=== PATIENT | female | born 1940 | race Caucasian/White ===

== ENCOUNTER → 2019-06-15 | Day surgery (SDC) | payer MEDICARE ==
--- NOTE | 2019-06-05 16:23 | HP ---
CC: Dr. Neves * PREOPERATIVE HISTORY AND PHYSICAL: DATE OF ADMISSION/SURGERY: 06/15/19 This patient is scheduled for same-day surgery by Dr. Romero on 06/15/19. DATE OF PREOPERATIVE HISTORY AND PHYSICAL EXAMINATION: 06/05/19. ATTENDING SURGEON: Dr. Yanna Romero * (dictated by Zulay Capone NP). CHIEF COMPLAINT: Right breast cancer. HISTORY OF PRESENT ILLNESS: The patient is an 79-year-old female who felt something different in her right breast and sought medical attention. She was sent for mammography, which identified an abnormality in the right breast which was biopsied and proved positive for invasive ductal carcinoma. She denied any nipple discharge or breast pain; she has never had radiation to the chest or a previous breast biopsy; there is no known family history of breast or ovarian cancer. She was briefly on control pills over 30 years ago; she was age 10 with her first menstrual period and 21 with the of her first child and she did breastfeed. She has been postmenopausal since [address]. Dr[address] Romero reviewed the above findings with the patient and discussed the various treatment options and the patient has opted for needle localized excision of the right breast cancer and sentinel lymph node biopsy as a same-day surgery procedure with intravenous sedation and local anesthesia. Dr. Romero described the nature of the surgical procedure, the relevant risks, benefits, and alternatives and today, I reviewed the expected postoperative care and recovery. The patient has had a chance to ask questions and stated that she understands the information and is satisfied with the answers given to her questions. She will sign surgical consent on the day of surgery. PAST MEDICAL HISTORY: Prediabetes; allergies and mild asthma and recurrent sinus infections. PAST SURGICAL HISTORY: Right hip replacement over 10 years ago. MEDICATIONS: 1. Advair 1 puff b.i.d. p.r.n. 2. Calcium and vitamin D supplement daily. 3. Vitamin B12 25 mg one-half tablet daily. 4. Flaxseed oil 1000 mg 1 capsule daily. 5. Metformin 500 mg p.o. daily, which she will hold on the day before surgery. 6. Glucosamine/chondroitin complex 1 tablet daily. 7. Estradiol vaginal insertion at bedtime p.r.n. ALLERGIES: LEVOFLOXACIN caused some type of unspecified reaction. FAMILY HISTORY: No known breast or ovarian cancer. No known anesthesia complications, bleeding tendencies, or clotting disorders. SOCIAL HISTORY: She is and her accompanied her to the visit today. She is a nonsmoker. She drinks 1 glass of wine daily and denies the use of other substances. REVIEW OF SYSTEMS: Constitutional: No fevers, chills, excessive fatigue, or weight loss. General: No previous anesthesia complications, bleeding tendencies, or clotting disorders. No history of blood transfusions. Endocrine : She was diagnosed with prediabetes, but currently her hemoglobin A1c has normalized to 6.3; she does not check fingersticks at home; no known thyroid disease. Breasts: As described in history of present illness. Respiratory: No current dyspnea on exertion. Occasional mild wheezing, occasional cough. Cardiovascular: No anginal chest pain or palpitations. Gastrointestinal: No nausea, vomiting, diarrhea, GI bleeding, or constipation. No change in bowel habits. Genitourinary: No dysuria. Musculoskeletal: Normal strength and tone. Integumentary: No chronic rashes or skin changes. Neurologic: No headache or blurred vision. No areas of focal weakness or numbness. Psychiatric: No reported anxiety, depression, or insomnia. PHYSICAL EXAMINATION GENERAL SURVEY: The patient is an 79-year-old female, well developed, well nourished, in no acute distress. VITAL SIGNS: Height 65.5 inches, weight 163 pounds, body mass index 26.7. Blood pressure 138/78, pulse 72 and regular, respiratory rate 16, temperature 97.3 tympanic. HEENT: Benign. NECK: Supple. No cervical lymphadenopathy. No supraclavicular lymphadenopathy. LUNGS: Breath sounds bilaterally clear and equal. HEART: Regular rate and rhythm. No murmurs or rubs appreciated. BREASTS: Symmetric. No skin dimpling or nipple discharge or nipple retraction. No axillary adenopathy. Palpation of the right breast reveals knobbiness in the area of the biopsy. No palpable masses in the left breast. ABDOMEN: Active bowel sounds. Soft, nontender, nondistended. No obvious masses or organomegaly. PELVIC: Exam deferred. RECTAL: Exam deferred. EXTREMITIES: Warm without edema or skin ulceration. NEUROLOGIC: Alert and oriented x3. Steady gait. SKIN: Warm, dry, intact. IMPRESSION: Right breast cancer. PLAN: Same-day surgery admission to Dr. Romero's service on 06/15/19 for needle localization excision of right breast cancer and sentinel lymph node biopsy. FEI CAPONE, MCKENNA [id number]/[facility] #: [id number] [facility]ENTERAbad
[~2019-06-15] MED LIST: Acetaminophen TAB* 325 MG ONE; Acetaminophen TAB* 325 MG PO ONE; Acetaminophen TAB* 325 MG PO PRN; Buffered Lidocaine 1% SYRIN* 1 ML/SYRINGE INTRADERM ONE; Bupivacaine 0.5% W/EPI SDV* 30 ML VIAL ONE; Bupivacaine 0.5%* 50 ML MDV VIAL ONE; DiMENhydriNATE IV* 50 MG/ML VIAL IV PUSH PRN; Famotidine IV* 10 MG/ML 2 ML (20 mg) ONE; HYDROcodone/ACETAMIN 5-325 MG* 1 TAB ONE; HYDROcodone/ACETAMIN 5-325 MG* 1 TAB PO PRN; Heparin VIAL(*) 5000 UNITS/ML VIAL (FIVE THOUSAND) ONE; KETAMINE HCL* 50 MG/ML 10 ML VIAL ONE; Lactated Ringers 1000 ML Bag* 1,000 ML IV SCH; Levalbuterol 0.63MG/3ML NEB* UNIT OF USE INH PRN; Lidocaine 1% INJ* 10 MG/ML 30 ML SDV ONE; Lidocaine 2% PF * 5 ML VIAL ONE; Lidocaine 2.5%/Prilocain 2.5%* 5 GM TUBE ONE; Midazolam* 1 MG/ML 5 ML VIAL (5 MG) ONE; Naloxone* 0.4 MG/ML 1 ML VIAL IV PRN; Ondansetron INJ* 2 MG/ML VIAL IV PRN; Propofol* 10 MG/ML 20 ML BTL ONE; ceFAZolin 2 GM PREMIX in ORs 2 GM/50 ML BAG ONE; celeCOXIB CAP* 200 MG ONE; celeCOXIB CAP* 200 MG PO ONE; diPHENhydraMINE IV* 50 MG/ML 1 ml VIAL (BENADRYL) IV PRN; fentaNYL* 50 MCG/ML 2 ML VIAL (100 MCG VIAL) IV PRN; fentaNYL* 50 MCG/ML 2 ML VIAL (100 MCG VIAL) ONE
--- NOTE | 2019-06-15 18:10 | BRIEFOPN ---
Brief Operative/Procedure Note - Operation Details Pre-Op Diagnosis: right breast cancer Post-Op Diagnosis: same Procedures: Needle localization excision of right breast cancer and sentinel lymph node biopsy Surgeon(s)/Proceduralists: ANUJA Moody Anesthesia: local/MAC Estimated Blood Loss: 10 cc Findings: see dictation Specimen(s)/Culture(s) Description: right breast cancer. [place] lymph nodes x3 Complications: none
[2019-06-15 18:51] VITALS: BP 174/75
--- NOTE | 2019-06-15 22:18 | OP ---
CC: [facility]; Dr. Javy Neves * DATE OF OPERATION: 06/15/19 - [facility] DATE OF : 38 SURGEON: Yanna Romero MD EDI MANAGER: TWILA Lorenzo student. PRE-OP DIAGNOSIS: Right breast cancer. POST-OP DIAGNOSIS: Right breast cancer. OPERATIVE PROCEDURE: Needle localization and excision of right breast cancer and sentinel lymph node biopsy. INDICATIONS: Ms. Hi is an 79-year-old woman recently diagnosed with breast cancer. After extensive discussion, she opted for lumpectomy and sentinel lymph node biopsy. On the morning of surgery, she underwent sentinel lymph node localization and needle localization without difficulty. DESCRIPTION OF PROCEDURE: She was then brought to the operating room, placed on the OR table in the supine position and given IV sedation. The right breast and axilla were prepped and draped in the usual sterile fashion. After infiltrating with local anesthetic, a curvilinear elliptical incision encompassing the wire was made. Subcutaneous tissue was then divided with electrocautery to excise the mass of tissue from around the wire. This was then marked in the usual fashion and handed off as a specimen. The report eventually came back from Radiology that the specimen contained the abnormality. Meanwhile, a search was made for the sentinel node. This was easily accessed through the breast incision. This was done by incising along the pectoralis muscle and sweeping the axillary fat pad posteriorly and then using the navigator to identify the approximate location of the sentinel node. The first sentinel node was identified. It had in situ counts of around 1820, ex vivo counts were 554, which made us think that the sentinel node had been possibly divided in two. The next sentinel node also had low ex vivo counts of 384. A third sentinel node was identified. It had in situ counts of 2295 and ex vivo counts of 2661. Each of these nodes was excised using combination of sharp and blunt dissection and clips to control small lymphatic and blood vessels that approached the gland. The wound was then inspected for hemostasis , which was achieved with a combination of electrocautery and clips. Once it appeared that the wound was adequately hemostatic, additional local was instilled into the wound. It should be mentioned that clips were placed in the cavity of the breast to vincent its confines. Closure was accomplished with 3-0 Vicryl in the subcutaneous layer and the skin was closed with 4-0 Prolene in a subcuticular fashion. Steri-Strips and a dry sterile dressing were applied. All sponge and instrument counts were correct. The patient tolerated the procedure well and was transferred to Recovery in a stable condition. [id number]/[facility] #: [id number] [facility]
== END | disposition home or self-care (01) ==
LOC: SDS 06:40
PROVIDERS: ATTEND Surgery
DX: C50.911 Malignant neoplasm of unspecified site of right female breast (principal); R73.03 Prediabetes; J45.909 Unspecified asthma, uncomplicated; Z96.649 Presence of unspecified artificial hip joint
CPT/HCPCS: 78195; 88307; 88342; A9270-GY; A9541; J0690; J1644; J2250; J2704; J3010; J3490

== ENCOUNTER 2024-02-14 11:36 | Inpatient (IN) ==
[2024-02-14] MEDS: NS 0.9% 1000 ml BAG 1,000 ML IV ONE (13:34)
[2024-02-14 14:15] LABS: Hematocrit 44.5 % (35-45); Hemoglobin 14.9 g/dL (11.5-14.3); Mean Corpuscular Hemoglobin 32.3 pg (27-33); Mean Corpuscular Hgb Conc 33.5 g/dL (31-36); Mean Corpuscular Volume 96.3 fL (80-97); Red Blood Count 4.62 10^6/uL (3.63-4.92); Red Cell Distribution Width 13.1 % (12-17); White Blood Count 5.6 10^3/uL (3.8-11.8)
[2024-02-14 14:24] LABS: High Sens Troponin Baseline 10 pg/mL (<15)
[2024-02-14 15:00] LABS: TSH Ultra Thyroid Stim Horm 1.99 mcIU/mL (0.34-5.60)
[2024-02-14 15:00] LABS: ABS Lymphocytes 0.5 10^3/uL (1.0-4.8); ABS Monocytes 0.4 10^3/uL (0.0-0.9); ABS Neutrophils 4.6 10^3/uL (1.5-7.6); ABS Nucleated RBC 0.01 10^3/ul; Lymphocyte % 9.3 %; Mean Platelet Volume 11.4 fL (7.5-11.2); Nucleated Red Blood Cells % 0.1 %/100WBC (0.0-0.8); Platelet Count 52 10^3/uL (150-450)
[2024-02-14 15:04] LABS: ALT 37 U/L (7-52); Albumin 3.7 g/dL (3.2-5.2); Albumin/Globulin Ratio 1.2 (1-3); Alkaline Phosphatase 33 U/L (35-149); Anion Gap 14 mmol/L (2-16); Blood Urea Nitrogen 33 mg/dL (6-24); CO2 Carbon Dioxide 17 mmol/L (22-32); Calcium 8.1 mg/dL (8.6-10.3); Chloride 102 mmol/L (101-111); Creatinine, Serum 0.89 mg/dL (0.51-0.95); Glucose 195 mg/dL (70-100); Sodium 133 mmol/L (135-145); Total Protein 6.7 g/dL (6.4-8.9); eGFR CKD-EPI 63.9 (>60)
[2024-02-14 15:35] LABS: High Sensitivity Troponin 1 Hr 10 pg/mL (<15)
[2024-02-14] MEDS: Iodixanol (CONTRAST) 320 MG/ML 100 ML SDV IV ONE (16:10)
[2024-02-14 16:56] LABS: Urine Appearance Clear; Urine Bacteria Absent /HPF (Absent); Urine Bilirubin Negative (Negative); Urine Blood 1+ (Negative); Urine Color Yellow; Urine Glucose 2+ (>=150 mg/dL) (Negative); Urine Ketones 4+ (Negative); Urine Nitrite Negative (Negative); Urine Protein 2+ (>=100 mg/dL) (Negative); Urine Red Blood Cell 1+(3-5/hpf) /HPF (0-Trace); Urine Specific Gravity 1.022 (1.002-1.030); Urine Squamous Epithelial Cell Present /HPF (Absent); Urine Urobilinogen 1+ (Negative); Urine White Blood Cell Trace(0-5/hpf) /HPF (0-Trace)
[2024-02-14 17:52] LABS: Magnesium 2.1 mg/dL (1.9-2.7)
[2024-02-14] MEDS: cefTRIAXone 1 gm/50 mL D5W 1 GM/50 ML BAG IV ONE (21:01)
[2024-02-14] MEDS: Azithromycin 500 mg/250 ml NS 500 MG/250 ML BAG IVPB ONE (21:02)
[2024-02-15 02:06] LABS: C Reactive Protein 116.91 mg/L (<8.01); Creatine Kinase 358 U/L (10-223)
[2024-02-15] MEDS: Lactated Ringers 1000 ml BAG 1,000 ML IV SCH (02:31)
[2024-02-15] MEDS: Fluticasone-Salmeterol 100-50 DISKUS NF INH SCH (08:13)
[2024-02-15 14:53] LABS: Hematocrit 35.4 % (35-45); Hemoglobin 12.2 g/dL (11.5-14.3); Mean Corpuscular Hemoglobin 32.8 pg (27-33); Mean Corpuscular Hgb Conc 34.5 g/dL (31-36); Red Blood Count 3.73 10^6/uL (3.63-4.92); Red Cell Distribution Width 13.3 % (12-17); White Blood Count 4.3 10^3/uL (3.8-11.8)
[2024-02-15 15:17] LABS: ABS Lymphocytes 0.6 10^3/uL (1.0-4.8); ABS Monocytes 0.4 10^3/uL (0.0-0.9); ABS Neutrophils 3.3 10^3/uL (1.5-7.6); Eosinophil % 0.2 %; Lymphocyte % 14.5 %; Mean Platelet Volume 11.2 fL (7.5-11.2); Nucleated Red Blood Cells % 0.1 %/100WBC (0.0-0.8); Platelet Count 36 10^3/uL (150-450)
[2024-02-15 15:48] LABS: Albumin/Globulin Ratio 1.2 (1-3); Calcium 7.7 mg/dL (8.6-10.3); Creatinine, Serum 0.72 mg/dL (0.51-0.95); Globulin 2.5 g/dL (2-4); Potassium 3.5 mmol/L (3.5-5.0); Total Bilirubin 0.6 mg/dL (0.2-1.0); Total Protein 5.5 g/dL (6.4-8.9); eGFR CKD-EPI 82.4 (>60)
[2024-02-15] MEDS: Iodixanol (CONTRAST) 320 MG/ML 100 ML SDV IV ONE (16:45)
[2024-02-15] MEDS: cefTRIAXone 1 gm/50 mL D5W 1 GM/50 ML BAG IV SCH ×2 (22:13→22:39)
[2024-02-16 07:13] LABS: Hemoglobin 12.2 g/dL (11.5-14.3); Mean Corpuscular Hemoglobin 33.1 pg (27-33); Mean Corpuscular Hgb Conc 34.8 g/dL (31-36); Mean Corpuscular Volume 95.1 fL (80-97); Mean Platelet Volume 11.9 fL (7.5-11.2); Platelet Count 35 10^3/uL (150-450); Red Blood Count 3.68 10^6/uL (3.63-4.92); Red Cell Distribution Width 13.3 % (12-17); White Blood Count 4.8 10^3/uL (3.8-11.8)
[2024-02-16 07:14] LABS: Albumin 2.7 g/dL (3.2-5.2); Calcium 7.6 mg/dL (8.6-10.3); Creatinine, Serum 0.73 mg/dL (0.51-0.95); Globulin 2.6 g/dL (2-4); Magnesium 1.9 mg/dL (1.9-2.7); Potassium 3.4 mmol/L (3.5-5.0); Total Bilirubin 0.5 mg/dL (0.2-1.0); Total Protein 5.3 g/dL (6.4-8.9)
[2024-02-16] MEDS: KCL 20 MEQ/100 ML IVPREMIX 20 MEQ/100 ML BAG IV SCH (08:58)
[2024-02-16 09:01] LABS: ABS Lymphocytes 1.4 10^3/uL (1.0-4.8); ABS Monocytes 0.4 10^3/uL (0.0-0.9); ABS Neutrophils 2.9 10^3/uL (1.5-7.6); ABS Nucleated RBC 0.02 10^3/ul; Eosinophil % 0.3 %; Lymphocyte % 30.3 %; Nucleated Red Blood Cells % 0.4 %/100WBC (0.0-0.8); RBC Morphology Normal (Normal)
[2024-02-16] MEDS ORDERED: Dextrose 50% Syringe 50 ml 25 GM/50 ML SYRINGE IV PUSH PRN (13:42)
[2024-02-16] MEDS: Lactated Ringers 1000 ml BAG 500 ML IV ONE (14:11)
[2024-02-16] MEDS: Lactated Ringers 1000 ml BAG 1,000 ML IV ONE (14:45)
[2024-02-16] MEDS: DOXYcycline 100 MG in NS 0.9% 250 ml 250 ML IVPB SCH (21:11)
[2024-02-17 05:25] LABS: ABS Eosinophils 0.3 10^3/uL (0.0-0.5); ABS Lymphocytes 2.8 10^3/uL (1.0-4.8); ABS Monocytes 0.5 10^3/uL (0.0-0.9); ABS Neutrophils 2.8 10^3/uL (1.5-7.6); ABS Nucleated RBC 0.01 10^3/ul; Hematocrit 33.7 % (35-45); Hemoglobin 11.6 g/dL (11.5-14.3); Lymphocyte % 43.5 %; Mean Corpuscular Hemoglobin 32.5 pg (27-33); Mean Corpuscular Hgb Conc 34.4 g/dL (31-36); Mean Corpuscular Volume 94.4 fL (80-97); Mean Platelet Volume 10.7 fL (7.5-11.2); Nucleated Red Blood Cells % 0.1 %/100WBC (0.0-0.8); Platelet Count 57 10^3/uL (150-450); Red Blood Count 3.57 10^6/uL (3.63-4.92); Red Cell Distribution Width 13.7 % (12-17); White Blood Count 6.4 10^3/uL (3.8-11.8)
[2024-02-17 05:38] LABS: Albumin 2.8 g/dL (3.2-5.2); Albumin/Globulin Ratio 1.2 (1-3); Calcium 7.5 mg/dL (8.6-10.3); Creatinine, Serum 0.71 mg/dL (0.51-0.95); Globulin 2.4 g/dL (2-4); Magnesium 1.9 mg/dL (1.9-2.7); Potassium 3.7 mmol/L (3.5-5.0); Total Bilirubin 0.5 mg/dL (0.2-1.0); Total Protein 5.2 g/dL (6.4-8.9); eGFR CKD-EPI 83.8 (>60)
[2024-02-17] MEDS: D5LR 1000 ml BAG 1,000 ML IV SCH (07:24)
[2024-02-17 22:17] LABS: Anaplasma phagocytophilum Positive (Negative); B. miyamotoi PCR, B Negative (Negative); Babesia divergens/MO-1 Negative (Negative); Babesia ducani Negative (Negative); Ehrlichia chaffeensis Negative (Negative); Ehrlichia ewingii/canis Negative (Negative); Ehrlichia muris eauclairensis Negative (Negative)
[2024-02-17] MEDS: Albuterol HFA INHALER 8 gm MDI INH PRN (22:30)
[2024-02-18] MEDS: guaiFENesin 100 mg/5 ml LIQ unit dose cup PO PRN (00:21)
[2024-02-18 05:47] LABS: ABS Basophils 0.1 10^3/uL (0.0-0.1); ABS Eosinophils 0.4 10^3/uL (0.0-0.5); ABS Lymphocytes 2.6 10^3/uL (1.0-4.8); ABS Monocytes 0.8 10^3/uL (0.0-0.9); ABS Neutrophils 5.9 10^3/uL (1.5-7.6); Hematocrit 32.9 % (35-45); Hemoglobin 11.2 g/dL (11.5-14.3); Lymphocyte % 26.8 %; Mean Corpuscular Hemoglobin 32.2 pg (27-33); Mean Corpuscular Hgb Conc 34.1 g/dL (31-36); Mean Corpuscular Volume 94.4 fL (80-97); Mean Platelet Volume 10.5 fL (7.5-11.2); Platelet Count 110 10^3/uL (150-450); Red Blood Count 3.48 10^6/uL (3.63-4.92); Red Cell Distribution Width 13.8 % (12-17); White Blood Count 9.8 10^3/uL (3.8-11.8)
[2024-02-18 06:28] LABS: Albumin 2.8 g/dL (3.2-5.2); Albumin/Globulin Ratio 1.1 (1-3); Calcium 7.5 mg/dL (8.6-10.3); Creatinine, Serum 0.58 mg/dL (0.51-0.95); Globulin 2.6 g/dL (2-4); Magnesium 1.7 mg/dL (1.9-2.7); Potassium 3.3 mmol/L (3.5-5.0); Total Bilirubin 0.6 mg/dL (0.2-1.0); Total Protein 5.4 g/dL (6.4-8.9); eGFR CKD-EPI 89.2 (>60)
[2024-02-18] MEDS: Potassium Chlor 20 meq TAB.ER PO ONE (08:13)
[2024-02-18] MEDS: Magnesium Sulfate 2 gm BAG 2 GM/50 ML BAG IVPB ONE (08:59)
[2024-02-18] MEDS: Magnesium Sulfate IV 1GM/100ML 1 GM/100 ML BAG IV ONE (10:23)
[2024-02-18] MEDS: Enoxaparin 40 MG/0.4 ML SYR SUBCUT SCH (17:20)
[2024-02-19 06:04] LABS: Calcium 7.4 mg/dL (8.6-10.3); Creatinine, Serum 0.54 mg/dL (0.51-0.95); Potassium 3.6 mmol/L (3.5-5.0); eGFR CKD-EPI 90.7 (>60)
[2024-02-19 06:57] LABS: ABS Basophils 0.1 10^3/uL (0.0-0.1); ABS Eosinophils 0.5 10^3/uL (0.0-0.5); ABS Lymphocytes 2.7 10^3/uL (1.0-4.8); ABS Monocytes 1.2 10^3/uL (0.0-0.9); ABS Neutrophils 5.9 10^3/uL (1.5-7.6); ABS Nucleated RBC 0.01 10^3/ul; Eosinophil % 4.6 %; Hemoglobin 11.9 g/dL (11.5-14.3); Mean Corpuscular Hgb Conc 35.1 g/dL (31-36); Mean Corpuscular Volume 94.1 fL (80-97); Mean Platelet Volume 10.6 fL (7.5-11.2); Nucleated Red Blood Cells % 0.1 %/100WBC (0.0-0.8); Platelet Count 152 10^3/uL (150-450); Red Blood Count 3.61 10^6/uL (3.63-4.92); Red Cell Distribution Width 13.7 % (12-17); White Blood Count 10.3 10^3/uL (3.8-11.8)
[2024-02-21 11:11] LABS: Rapid COVID-19 Molecular Undetected (Undetected)
[2024-02-21] MEDS: Magnesium Hydroxide LIQ 30 ML UDC PO SCH (12:43)
[2024-02-21] MEDS: Polyethylene Glycol 3350 17 GM PACKET PO SCH (12:43)
[2024-02-23 10:37] VITALS: BP 142/61
== END 2024-02-23 14:03 | DRG 869 ==
LOC: EDHOLD 11:36 → ED 11:36 → SUATTDRO 02-15 00:11 → EDHOLD 02-15 06:14 → MEDTELE 02-15 17:05 → SUATTDRO 02-18 13:42
PROVIDERS: ADMIT Internal Medicine; ATTEND Student in an Organized Health Care Education/Training Program